=== PATIENT | male | born 1960 | race Caucasian/White ===

== ENCOUNTER → 2017-10-21 | Outpatient (CLI) | payer OTHER ==
[2015-12-29 11:44] VITALS: BP 160/91
[~2017-10-21] MED LIST: ASPIR LOW81 MG PO; EFFIENT10 M1 PO; HYDROCHLOROTHIA1 T15 PO; LIPITOR 40MG TA40 MG PO; OMEGA 3 1,0001 EACH PO; PANTOPRAZOLE SO40 MG PO; TOPROL XL 25MG25 MG PO; ZYLOPRIM300 MG PO
== END ==
LOC: RAD 16:57
DX: M17.12 Unilateral primary osteoarthritis, left knee (principal); M1A.9XX0 Chronic gout, unspecified, without tophus (tophi)

== ENCOUNTER → 2020-06-12 | Outpatient (CLI) | payer OTHER ==
[2015-12-29 11:44] VITALS: BP 160/91
== END ==
LOC: LAB 05-29 10:16
DX: Z01.812 Encounter for preprocedural laboratory examination (principal); Z20.828 Contact with and (suspected) exposure to other viral communicable diseases

== ENCOUNTER → 2020-06-17 | Day surgery (SDC) | payer OTHER ==
[2015-12-29 11:44] VITALS: BP 160/91
== END | disposition home or self-care (01) ==
LOC: MSO 06-03 10:18
DX: K22.70 Barrett's esophagus without dysplasia (principal); K29.50 Unspecified chronic gastritis without bleeding; K44.9 Diaphragmatic hernia without obstruction or gangrene; K21.9 Gastro-esophageal reflux disease without esophagitis; I25.2 Old myocardial infarction; I10 Essential (primary) hypertension; G47.33 Obstructive sleep apnea (adult) (pediatric); Z79.82 Long term (current) use of aspirin; Z79.899 Other long term (current) drug therapy; Z95.818 Presence of other cardiac implants and grafts
CPT/HCPCS: 00731; J2704; J7120

== ENCOUNTER → 2023-02-10 | Outpatient (CLI) | payer OTHER | LOC: RAD 14:27 | DX: M19.012 Primary osteoarthritis, left shoulder (principal) ==

== ENCOUNTER → 2024-01-10 | Day surgery (SDC) | payer OTHER ==
[~2024-01-10] MED LIST changes: +Lidocaine PF 2% (20 MG/ML) 2 ML VIAL ONE
== END | disposition home or self-care (01) ==
LOC: MSO 10:12
DX: K21.9 Gastro-esophageal reflux disease without esophagitis (principal); K44.9 Diaphragmatic hernia without obstruction or gangrene; K22.70 Barrett's esophagus without dysplasia
CPT/HCPCS: 00731; J2704; J7120